=== PATIENT | female | born 1990 | race Caucasian/White ===

== ENCOUNTER → 2022-06-17 | Emergency (ER) | payer OTHER ==
[2022-06-17 17:27] VITALS: BP 135/84; PULSE 66; RESP 18; TEMP 98.2; BMI 25.9
[2022-06-17 21:48] LABS: EPI CELLS 15 /uL (0-25.1); HYALINE CASTS 0 /uL (0-3.1); PH,URINE 5.5 (5.0-8.0); URINE APPEARANCE CLEAR; URINE BACTERIA 162 /uL (0-1359); URINE BILIRUBIN NEGATIVE (NEGATIVE); URINE COLOR YELLOW; URINE GLUCOSE (UA) NEGATIVE (NEGATIVE); URINE KETONE NEGATIVE (NEGATIVE); URINE LEUK ESTERASE NEGATIVE (NEGATIVE); URINE NITRITE NEGATIVE (NEGATIVE); URINE PROTEIN 2+ (NEGATIVE); URINE RBC 169 /uL (0-23.9); URINE UROBILINOGEN 0.2 mg/dL (0.2-1.0); URINE WBC 15 /uL (0-25.8)
== END | disposition left against medical advice (07) ==
LOC: JER 17:13
DX: N93.9 Abnormal uterine and vaginal bleeding, unspecified (principal)
CPT/HCPCS: 36415; 81003; 84703; 87070; 87086; 87186; 87205; 87491; 87591; 99283-25